=== PATIENT | female | born 1955 | race Caucasian/White ===

== ENCOUNTER → 2022-01-17 | Outpatient (CLI) | payer MEDICARE ==
--- NOTE | 2022-01-17 12:59 | XR ---
EXAMINATION TYPE: XR cervical spine comp DATE OF EXAM: 01/17/2022 COMPARISON: NONE HISTORY: Pain TECHNIQUE: Four views are submitted. FINDINGS: The odontoid is intact. There are no compression deformities. The prevertebral soft tissue structur es are within normal limits. Severe facet arthropathy at all levels. There is anterolisthesis of C4 on C5 and C5 and C6 likely degenerative. Multilevel mild degenerative disc disease. Calcifications so ft tissue left neck likely related to carotid artery atherosclerotic change. Suspect bilateral multilevel foraminal encroachment. IMPRESSION: 1. Severe multilevel facet arthropathy with suspected foraminal encroachment at multiple levels. Grad e 1 anterolisthesis of C4 on C5 and C5 and C6 likely degenerative. Recommend follow-up MRI..
== END | disposition home or self-care (01) ==
LOC: RADXRMAIN 12:24
PROVIDERS: ATTEND Physician Assistant
DX: M54.2 Cervicalgia (principal); R51.9 Headache, unspecified
CPT/HCPCS: 72050